=== PATIENT | female | born 1955 | race Caucasian/White ===

== ENCOUNTER 2019-02-12 11:53 | Day surgery (SDC) | payer MEDICARE, BC ==
[~2019-02-12] VITALS: Ht 172.7 cm; Wt 63.5 kg
[2019-02-12] VITALS (9 sets, daily range): BP systolic 110–163; BP diastolic 55–86
[2019-02-12] MEDS ORDERED: normal saline 1,000 ML IV SCH (12:15)
[2019-02-12] MEDS ORDERED: diphenhydrAMINE 25mg capsule PO PRN (12:15)
[2019-02-12 12:45] LABS: BASOPHILS # (AUTO) 0.1 X10'3 (0-0.2); EOSINOPHILS # (AUTO) 0.1 X10'3 (0-0.9); EOSINOPHILS % (AUTO) 1.7 % (0-6); HEMATOCRIT 45.8 % (35.0-45.0); HEMOGLOBIN 15.1 g/dl (12.0-16.0); LYMPHOCYTES # (AUTO) 0.8 X10'3 (1.1-4.8); LYMPHOCYTES % (AUTO) 14.3 % (21-51); MEAN CORPUSCULAR HEMOGLOBIN 30.6 PG (27.0-31.0); MEAN CORPUSCULAR VOLUME 92.7 FL (78-98); MEAN PLATELET VOLUME 9.5 FL (7.4-10.4); MONOCYTES # (AUTO) 0.6 X10'3 (0-0.9); MONOCYTES % (AUTO) 11.6 % (2-12); NEUTROPHILS % (AUTO) 71.4 % (42-75); PLATELET COUNT 146 X10'3 (140-440); RED BLOOD COUNT 4.94 X10'6 (4.20-5.60); RED CELL DISTRIBUTION WIDTH 13.5 % (11.5-14.5); WHITE BLOOD COUNT 5.6 X10'3 (4.5-11.0)
[2019-02-12] MEDS ORDERED: LIDOcaine 1% (10mg/ml)w/preservative injection 20ml MDV ONE (12:53)
[2019-02-12] MEDS ORDERED: iohexol 350 MG/ML 50ML vial IV ONE (12:53)
[2019-02-12] MEDS ORDERED: iohexol 350MG/ML 100ml bottle IV ONE ×2 (12:53→13:37)
[2019-02-12] MEDS ORDERED: fentaNYL/PF 50MCG/1 ML 2ML syringe ONE (12:53)
[2019-02-12] MEDS ORDERED: midazolam 2 mg/2 ml injection ONE ×2 (12:53→13:27)
[2019-02-12 12:57] LABS: ALBUMIN 4.4 G/DL (3.4-5.0); ANION GAP 6 (8-16); BLOOD UREA NITROGEN 13 MG/DL (7-18); BUN/CREATININE RATIO 12.4 (6.6-38.0); CALCIUM 9.4 MG/DL (8.5-10.1); CHLORIDE 105 MMOL/L (99-107); CREATININE 1.05 MG/DL (0.40-0.90); GLUCOSE 78 MG/DL (70-104); MAGNESIUM 2.1 MG/DL (1.5-2.4); POTASSIUM 3.4 MMOL/L (3.5-5.1); SODIUM 142 MMOL/L (135-145); TOTAL CARBON DIOXIDE 31.4 MMOL/L (24-32); eGFR 52 ML/MIN
[2019-02-12] MEDS ORDERED: ESOM20CA PO (12:57)
[2019-02-12] MEDS ORDERED: ALPR-623 PO (12:57)
[2019-02-12] MEDS ORDERED: OSPE60TA2 PO (12:57)
[2019-02-12] MEDS ORDERED: ASPI-611 PO (12:57)
[2019-02-12] MEDS ORDERED: DIPH25CA83 PO (12:57)
[2019-02-12] MEDS ORDERED: NITR0.4T SL (12:57)
[2019-02-12] MEDS ORDERED: ROSU20TA2 PO (12:57)
[2019-02-12] MEDS ORDERED: heparin 1,000unit/ml 10ml vial 10 ML ONE (13:37)
[2019-02-12] MEDS ORDERED: clopidogrel 300mg tablet ONE (13:53)
[2019-02-12] MEDS ORDERED: HYDROcodone/acetaminophen 10/325mg tab PO PRN (14:45)
[2019-02-12] MEDS ORDERED: OXAZEpam 15mg capsule PO PRN (14:45)
[2019-02-12] MEDS ORDERED: HYDROcodone/acetaminophen 5mg/325mg tablet PO PRN (14:45)
[2019-02-12] MEDS ORDERED: normal saline 1000ml 1,000 ML IV SCH (14:45)
[2019-02-12] MEDS ORDERED: simethicone 80mg chew tab PO STA (16:00)
== END 2019-02-12 18:24 | disposition home or self-care (01) ==
LOC: SSTAY O 11:53
PROVIDERS: ATTEND Internal Medicine Cardiovascular Disease
DX: R94.39 Abnormal result of other cardiovascular function study (principal); I25.10 Atherosclerotic heart disease of native coronary artery without angina pectoris; E78.5 Hyperlipidemia, unspecified; Z79.01 Long term (current) use of anticoagulants; Z79.899 Other long term (current) drug therapy
CPT/HCPCS: 36415; 80048; 83735; 85025; 85610; 93005; 93458; 99152; 99153; C1769; C1874; C1894; C9600; J1644; J2001; J2250; J3010; J7030; Q9967; A4620; A6258; C1760